=== PATIENT | female | born 1950 | race Caucasian/White ===

== ENCOUNTER → 2024-10-14 14:59 | Outpatient (REF) | payer OTHER, SELFPAY | LOC: HWRAD 14:59 | PROVIDERS: ATTENDING PHYSICIAN Internal Medicine | DX: M25.561 Pain in right knee (principal); M25.562 Pain in left knee; S09.90XA Unspecified injury of head, initial encounter | CPT/HCPCS: 70250; 73560 ==

== ENCOUNTER → 2024-11-01 09:45 | Outpatient (REF) | payer OTHER, SELFPAY | LOC: PAVMRI 09:45 | PROVIDERS: ATTENDING PHYSICIAN Internal Medicine; REFERRING PHYSICIAN Student in an Organized Health Care Education/Training Program | DX: M25.561 Pain in right knee (principal) | CPT/HCPCS: 73721 ==

== ENCOUNTER → 2025-07-21 13:46 | Outpatient (REF) | payer OTHER, SELFPAY | LOC: PAVMRI 13:46 | PROVIDERS: ATTENDING PHYSICIAN Student in an Organized Health Care Education/Training Program; FAMILY PHYSICIAN Internal Medicine | DX: M25.571 Pain in right ankle and joints of right foot (principal) | CPT/HCPCS: 73721 ==